=== PATIENT | male | born 1935 | race Caucasian/White ===

== ENCOUNTER 2021-06-22 04:07 | Emergency (ER) | payer OTHER ==
[2021-06-22 04:20] VITALS: BMI 34.3
[2021-06-22] MEDS ORDERED: ACETAMINOPHEN 325 MG TABLET (FP) ONE (05:49)
[2021-06-22 12:30] VITALS: BP 107/62; PULSE 112; TEMP 98
== END 2021-06-22 12:45 | disposition home or self-care (01) ==
LOC: JER 04:07
PROC: 0HQ0XZZ Repair Scalp Skin, External Approach (ICD-10-PCS; principal; 2021-06-22)
DX: S01.01XA Laceration without foreign body of scalp, initial encounter (principal); W19.XXXA Unspecified fall, initial encounter
CPT/HCPCS: 70450-TC; 99284-25

== ENCOUNTER 2023-04-04 20:01 | Emergency (ER) | payer OTHER ==
[2023-04-04 20:06] VITALS: BP 72/48; PULSE 115; RESP 30; BMI 35.6
== END 2023-04-04 20:31 | disposition expired ==
LOC: JER 20:01
DX: R06.03 Acute respiratory distress (principal); R00.0 Tachycardia, unspecified; R09.89 Other specified symptoms and signs involving the circulatory and respiratory systems; J96.90 Respiratory failure, unspecified, unspecified whether with hypoxia or hypercapnia
CPT/HCPCS: 71045-TC-FY; 99283-25